=== PATIENT | female | born 1960 | race Caucasian/White ===

== ENCOUNTER 2016-12-08 13:37 | Emergency (ER) | payer MEDICAID ==
--- NOTE | 2016-12-08 14:39 | EDM.PDOC ---
ED HPI ENT - General Chief Complaint: ENT Problem Stated Complaint: SORE THROAT Time Seen by Provider: 12/08/16 14:20 Source: Reports: Patient History Limitations: Reports: No limitations - History of Present Illness INITIAL COMMENTS - FREE TEXT/NARRATIVE: 56 yo female presents with laryngitis and a cough. May have had a fever earlier in the illness. Saw her doctor for this on Tuesday and was told she had a cold. Thinks she has wheezing. Is a former smoker. Rhinorrhea now clear. Cough occasionally productive. No SOB. Daughter with very similar sx's now. Symptom Onset Date: 12/05/16 Timing/Duration: Reports: Day(s):, Constant, Gradual onset Severity: mild Location: Reports: throat Quality: Reports: Other (raw) Improves with: Reports: None Worsens with: Reports: Other (swallowing/coughing) Associated symptoms: Reports: cough, sputum. Denies: syncope, chest pain, fever /chills, nausea/vomiting Treatment(s) EQUAL OPPORTUNITY ASSISTANT: Reports: Other (see below) (none) - Related Data Allergies/ADRs: Allergies Allergy/AdvReac Type Severity Reaction Status Date / Time Sulfa (Sulfonamide Allergy Hives Verified 12/08/16 14:09 Antibiotics) Home Meds: Home Meds Codeine/guaiFENesin [Robitussin AC] 5 - 10 ml PO Q4H PRN #1 bottle 12/08/16 [Rx] ED ROS ENT - Review of Systems Review Of Systems: See Below Constitutional: Reports: no symptoms HEENT: Reports: Rhinitis, Throat pain. Denies: Ear discharge, Ear pain, Eye discharge, Eye pain, Nose pain Respiratory: Reports: Wheezing (subjective), Cough, Sputum. Denies: Hemoptysis Cardiovascular: Reports: No symptoms GI/Abdominal: Reports: No symptoms : Reports: no symptoms Musculoskeletal: Reports: no symptoms Skin: Reports: no symptoms Neurological: Reports: No Symptoms Psychiatric: Reports: No symptoms ED EXAM, ENT - Physical Exam Exam: See Below Exam Limited By: No limitations General Appearance: alert, WD/WN, no apparent distress, obese Eye Exam: bilateral eye: normal inspection Ears: normal external exam, normal canal, hearing grossly normal, normal TMs Nose: normal inspection, normal mucousa, no blood, clear rhinorrhea Mouth/Throat: Normal inspection, Normal lips, Normal oropharynx Head: atraumatic, normocephalic Neck: normal inspection, supple, non-tender Respiratory/Chest: no respiratory distress, lungs clear, normal breath sounds, no accessory muscle use, chest non-tender Back: normal inspection Extremities: normal inspection, normal range of motion, non-tender, no pedal edema Neurological: alert, oriented, CN II-XII intact, normal cognition, no motor/ sensory deficits Psychiatric: normal affect, normal mood Skin: Warm, Dry, Intact, Normal color, No rash Lymphatic: no adenopathy Course - Vital Signs Last Recorded V/S: Last Vital Signs Temp 36.4 C 12/08/16 13:52 Pulse 80 12/08/16 13:52 Resp 18 12/08/16 13:52 BP 116/76 12/08/16 13:52 Pulse Ox 97 12/08/16 13:52 Departure - Departure Time of Disposition: 14:38 Disposition: Home, Self-Care 01 Condition: good Clinical Impression: Laryngitis, Viral URI with cough Prescriptions: Codeine/guaiFENesin [Robitussin AC] 5 - 10 ml PO Q4H PRN #1 bottle PRN Reason: Cough Referrals: Slim Ramirez MD [Primary Care Provider] - Forms: ED Department Discharge Care Plan Goals: Take acetaminophen 1000 mg every 6 hrs as needed. Take Robitussin AC as directed for cough or sore throat. Drink ample fluids. Avoid smoke exposure. Use a cool mist humidifier at night. Recheck with your doctor as needed.
== END 2016-12-08 14:42 | disposition home or self-care (01) ==
LOC: FB.ED 13:37
CPT/HCPCS: 99283

== ENCOUNTER 2018-03-06 18:37 | Emergency (ER) | payer MEDICAID ==
--- NOTE | 2018-03-06 21:58 | EDM.PDOC ---
ED HPI GENERAL MEDICAL PROBLEM - General Chief Complaint: Eye Problems Stated Complaint: SOMETHING IN HER FIELD OF VISION Time Seen by Provider: 03/06/18 21:52 Source of Information: Reports: Patient History Limitations: Reports: No Limitations - History of Present Illness INITIAL COMMENTS - FREE TEXT/NARRATIVE: c/o eye distortion pt watching TV, for 5-10 minutes she could see normally, out of L eye there was a curvilinear distortion of the room in a linear aspect toward the peripheral, no photophobia, no d/c, no pain, no trauma, not happened previously feels fine now saw ophtho in [place] 1y ago and given medicated drops for left eye for possible dry eye dx DM 1y ago, wears corrective lens pt's father worried re possible CVA altho no associated sxs to suggest impaired posterior circulation 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 - Related Data Allergies Allergy/AdvReac Type Severity Reaction Status Date / Time Sulfa (Sulfonamide Allergy Hives Verified 03/06/18 21:07 Antibiotics) bee stings Allergy Anaphylactic Uncoded 03/06/18 21:08 Shock medical tape Allergy Rash Uncoded 03/06/18 21:09 strawberries Allergy Cannot Uncoded 03/06/18 21:08 Remember Past Medical History Gastrointestinal History: Reports: Cholelithiasis Genitourinary History: Reports: None Endocrine/Metabolic History: Reports: Obesity/BMI 30+ - Infectious Disease History Infectious Disease History: Reports: Chicken Pox, Measles, MRSA, Mumps, Rheumatic Fever - Past Surgical History Female Surgical History: Reports: Breast Biopsy, Oophorectomy Oncologic Surgical History: Reports: Biopsy of Breast Social & Family History - Family History Family Medical History: Noncontributory - Caffeine Use Caffeine Use: Reports: Tea ED ROS GENERAL - Review of Systems Review Of Systems: See Below Constitutional: Reports: No Symptoms HEENT: Reports: Other (visual change) Respiratory: Reports: No Symptoms Cardiovascular: Reports: No Symptoms Endocrine: Reports: No Symptoms GI/Abdominal: Reports: No Symptoms : Reports: No Symptoms Musculoskeletal: Reports: No Symptoms Skin: Reports: No Symptoms Neurological: Reports: No Symptoms Psychiatric: Reports: No Symptoms Hematologic/Lymphatic: Reports: No Symptoms Immunologic: Reports: No Symptoms ED EXAM GENERAL W FULL EYE - Physical Exam Exam: See Below Exam Limited By: No Limitations General Appearance: Alert, WD/WN, No Apparent Distress Eye Exam: Bilateral Eye: Normal Inspection, PERRL, Other (pt with perleche b/l ( x 1y by hx) with dry skin (not using cream), skin in general is dry and eye most likely is as well, however nl exam, eyelids wnl, no d/c, blink normal) Comments: 4/4 mm, eye grounds wnl thru out, nl disc, nl vessels, no distortion Ears: Normal External Exam Nose: Normal Inspection, Normal Mucosa, No Blood Throat/Mouth: Normal Inspection, Normal Lips, Normal Teeth, Normal Gums, Normal Oropharynx, Normal Voice, No Airway Compromise Head: Atraumatic Neck: Normal Inspection, Supple, Non-Tender, Full Range of Motion Respiratory/Chest: No Respiratory Distress, Lungs Clear, Normal Breath Sounds Cardiovascular: Regular Rate, Rhythm, No Edema GI/Abdominal: Soft, Non-Tender Back Exam: Normal Inspection Extremities: Normal Inspection, Normal Range of Motion, Non-Tender, No Pedal Edema Neurological: Alert, Oriented, CN II-XII Intact, Normal Cognition, No Motor/ Sensory Deficits Psychiatric: Normal Affect, Normal Mood Skin Exam: Warm, Dry, Intact, Normal Color, No Rash Lymphatic: No Adenopathy Course - Vital Signs Last Recorded V/S: Last Vital Signs Temp 36.6 C 03/06/18 19:55 Pulse 65 03/06/18 19:55 Resp 16 03/06/18 19:55 BP 112/68 03/06/18 19:55 Pulse Ox 99 03/06/18 19:55 Departure - Departure Time of Disposition: 21:59 Disposition: Home, Self-Care 01 Condition: Good Clinical Impression: Visual distortion - Discharge Information Instructions: Visual Disturbances Referrals: Hilary Chino PA-C [Primary Care Provider] - Additional Instructions: Your eye exam is within normal limits here. You should have an additional exam done by your drafting layout worker. Make an appointment in the next week. Return to ED if you are feeling worse or develop new symptoms.
[2018-03-07 05:09] VITALS: BP 108/64
== END 2018-03-06 22:05 | disposition home or self-care (01) ==
LOC: FB.ED 18:37
DX: H53.9 Unspecified visual disturbance (principal); Z88.2 Allergy status to sulfonamides; Z91.018 Allergy to other foods; Z91.030 Bee allergy status
CPT/HCPCS: 99283